=== PATIENT | female | born 1980 | race Caucasian/White ===

== ENCOUNTER 2020-07-04 08:11 | Inpatient (IN) | payer BC ==
[2020-07-04 06:07] LABS: Urine Appearance CLOUDY; Urine Bilirubin NEGATIVE (NEG); Urine Blood NEGATIVE (NEG); Urine Color YELLOW; Urine Glucose NEGATIVE (NEG); Urine Protein NEGATIVE (NEG); Urine Specific Gravity 1.015 (1.005-1.030); Urine Urobilinogen 0.2 mg/dL (0.2-1.0)
[2020-07-04 06:14] LABS: Urine Bacteria NONE SEEN /HPF (<20); Urine RBC <5 /HPF (NONE SEEN)
[2020-07-04 06:20] LABS: Absolute Lymphocytes (CBC) 1.8 K/uL (0.7-4.9); Basophils % 0.6 % (0-1.3); Hematocrit 34.4 % (36.0-45.0); MPV 11.3 fL (7.6-11.3); RBC Red Blood Cell Count 3.94 M/uL (3.86-4.86)
[~2020-07-04 08:11] MED LIST: BUTORPHANOL 1 MG/ML INJ IV PRN; CARBOPROST TROME 250 MCG/ML IM PRN; METHYLERGONOVINE 0.2MG/ML AMP IM PRN; OXYTOCIN/LR 20 UNIT/1,000 ML BAG IV ONE; OXYTOCIN/LR 20 UNIT/1,000 ML BAG IV SCH; PROMETHAZINE INJ 25 MG/ML AMP IM PRN; Ringers Lactate 1,000 ML IV ONE; Ringers Lactate 1,000 ML IV PRN; Ringers Lactate 1,000 ML IV SCH
--- NOTE | 2020-07-04 08:44 | PREOPHP ---
Date of Admission: 07/04/2020 History Of Present Illness: 40-year-old 6, para 4, at 38 weeks 6 days according to ultrasoun d, 39 weeks 2 days, possibly 3 days according to the patient's conception date that she is relatively certain on. The patient has had pruritus of and is on ursodiol, so we are delivering the baby at this point. Family History: Grandmother with cervical cancer. Otherwise, noncontributory. The patient had jaw surgery in 1995, breast augmentation. The patient is on vitamins prior to admission. Allergies: DOES NOT HAVE ANY ALLERGIES. Social History: Does not smoke. Physical Examination: HEENT: Clear. Pupils equal, round, and reactive to light and accommodation. Conjunctivae well perf used. No oral, lingual, or buccal lesions. Chest/Lungs: Clear. Heart: Without murmurs, thrills, heaves, or rubs. Breasts: Without masses on previous visits. Abdomen: Term size. Extremities: Clear. : Cervix is 3 cm, 50% to 60% effaced. Vertex still -1 to -2 station. We will wait for better application of the cervix before we attempt rupture of membranes. She knows if membranes rupture spontaneously, she is to tell the nurse so we can check to make sure there are n o cord problems. Full admission and labor talk given. She is Rh positive, immune to rubella, and nega tive strep screen. NANCY/FROYLAN Voice ID: [id number]
[2020-07-04] MEDS ORDERED: LIDOCAINE 1% MPF 30 ML VIAL ONE (12:19)
--- NOTE | 2020-07-04 13:15 | PN ---
Now baby looks good. She is 3.5, but still with pressure on the head. It is not well applied to the cervix, so we will wait for either spontaneous rupture or wait until she gets a little bit further d own and then rupture membranes. The patient's blood pressures are slightly elevated. We will check the urine but right now I do not think she has preeclampsia. NANCY/FROYLAN Voice ID: [id number] Report ID: [id number]
--- OUTSIDE RECORDS SUMMARY | 2020-07-04 14:16 | XMS REPORT | Clinical Summary ---
:1980 Author Organization [facility] Address [address] [place] [address] Care Team Providers Name Role Phone Aristeo Muniz MD Primary Care Provider Allergies Not on File Medications No known medications Active Problems Problem Noted Date Cervical radiculopathy 07/04/2017 Osteoarthritis of cervical spine 07/04/2017 Social History Tobacco Use Types Packs/Day Years Used Date Never Assessed Sex Assigned at Date Recorded Not on file Last Filed Vital Signs Not on file Plan of Treatment Health Maintenance Due Date Last Done Comments CERVICAL CANCER SCREENING 01/23/2000 INFLUENZA VACCINE 02/26/2020 Results Not on fileafter 07/04/2019 Advance Directives For more information, please contact: [phone] Type Date 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
--- OUTSIDE RECORDS SUMMARY | 2020-07-04 14:16 | XMS REPORT | Continuity of Care Document ---
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 FINDINGS: Compression duplex ultrasound of the left lower extremity was done from the inguinal through the infrageniculate popliteal region. The posterior tibial vein in the calf was also demonstrated. The visualized superficial a nd deep veins are patent and compressible without evidence of intraluminal thrombus. Satisfactory spontaneous and augmented flow is demonstrated in the visualized segments. IMPRESSION: Negative venous Doppler of the left lower extrem ity. [id number] Consultation Notes No Data Provided for This Section Discharge Summaries No Data Provided for This Section History and Physicals No Data Provided for This Section Vital Signs No Data Provided for This Section Encounters Location Location Encounter Encounter Reason Attending ADM DC Stat us Source Details Type Number For Provider Date Date Visit [facility] Out[facility] [id number] Trent Muniz 04/16 04/17 [facility] Procedures No Data Provided for This Section Assessment and Plan No Data Provided for This Section Plan of Care No Data Provided for This Section Social History Social History Date Source Social History TypeResponse 04/17/2017 [facility] Family History No Data Provided for This Section Advance Directives No Data Provided for This Section Functional Status No Data Provided for This Section
--- OUTSIDE RECORDS SUMMARY | 2020-07-04 14:17 | XMS REPORT | Continuity of Care Document ---
:1980 Author Organization [facility] Address [address] [place] [address] Care Team Providers Name Role Phone Aristeo Muniz MD Primary Care Physician Lab, Fam Pob I Attending Clinician Unavailable Flavio Attending Clinician Problems Condition Condition Condition Status Onset Resolution Last Treating Co mments Source Name Details Category Date Date Treatment Clinician Date Lump in Lump in Disease Active right right 01-30 Anderso breast breast 00:00: n 00 Cervical Cervical Disease Active 2016-07 [place] radiculopa radiculopa 09-04 Me thodi thy thy 00:00: st 00 Osteoarthr Osteoarthr Disease Active 2016-07 [place] [facility] [address] [facility] cervical cervical 00:00: st spine spine 00 DX: Diagnosis Active 2017-04-16 Mem oria I82.532=CH 04-16 09:27:00 l RONIC DX: 00:00: [place] EMBOLISM I82.532=CH 00 AND RONIC THROMBO EMBOLISM AND THROMBO Active 04/16/2017 Christian Carrasco Allergies, Adverse Reactions, Alerts This patient has no known allergies or adverse reactions. Family History Family Member Diagnosis Comments Start Date Stop Date Source Maternal grandfather Sarcoma MD Jacquelyn pimentel Maternal grandmother Colon cancer MD Horta Maternal grandmother Leukemia MD Jacquelyn pimentel Maternal grandmother Thyroid cancer MD Horta Natural mother Cervical cancer MD Alecia handy Paternal aunt -Breast cancer MD Trent rubio Family member Ovarian cancer MD Trent rubio Family member Pancreatic cancer MD Jacquelyn pimentel Social History Social Habit Start Date Stop Date Quantity Comments Source Sex Assigned At MD [place] on Cigarettes smoked 2018-01-30 2018-01-30 MD Trent rubio current (pack per 00:00:00 00:00:00 day) - Reported Cigarette pack-years 2018-01-30 2018-01-30 MD Jacquelyn pimentel 00:00:00 00:00:00 Tobacco use and 2018-01-30 2018-01-30 Never used MD Tapia on exposure 00:00:00 00:00:00 Alcohol intake 2018-01-30 2018-01-30 Current drinker MD Alecia handy 00:00:00 00:00:00 of alcohol (finding) History of tobacco 1994-08-02 2017-08-02 Current smoker MD Horta use 00:00:00 00:00:00 Smoking Status Start Date Stop Date Source Former smoker 2018-01-30 00:00:00 2018-01-30 00:00:00 MD Castillo son Medications Ordered Filled Start Stop Current Ordering Indication Dosage Frequency Signature Comments Components Source Medication Medication Date Date Medication? Clinician (SIG) Name Name levothyroxi Yes 62.5ug Take 62.5 ne 7-06 mcg by Stepan (SYNTHROID, 15:41: mouth n LEVOTHROID) 30 daily. 125 mcg tablet magnesium 2017- Yes 2000mg Take 2,000 oxide 7-06 mg by Stepan (MAOX) 400 15:39: mouth n mg tablet 16 daily. norgestimat Yes daily. e-ethinyl 07-28 Stepan estradiol 00:00: n (FEMYNOR) 00 0.25-35 mg-mcg per tablet Procedures This patient has no known procedures. Plan of Care Planned Activity Planned Date Details Comments Source Future Scheduled 2020-02-26 INFLUENZA VACCINE [place] [facility] 00:00:00 [code = INFLUENZA VACCINE] Future Scheduled 2000-01-23 Screening for [facility] 00:00:00 malignant neoplasm of cervix (procedure) [code = 691231520] Encounters Start End Encounter Admission Attending Care Care Encounter Source Date/Time Date/Time Type Type Clinicians Facility Department ID 2020-03-06 2020-03-06 Laboratory Lab, Adc [facility] [id number] 14:45:35 15:05:35 Only [facility] [id number] [place] [id number] [id number] [address] 2017-04-16 2017-04-[address] [facility] [id number] 09:18:00 23:59:00 00 Results This patient has no known results.
[2020-07-04] MEDS ORDERED: DOCUSATE NA/SENNA CONC 1 TAB PO PRN (14:28)
[2020-07-04] MEDS ORDERED: BISACODYL 10 MG RECTAL SUPP PR PRN (14:28)
[2020-07-04] MEDS ORDERED: Oxycodone HCl/Acetaminophen 1 TAB TAB PO PRN ×2 (14:28)
[2020-07-04] MEDS ORDERED: DIPHENHYDRAMINE 25 MG TAB/CAP PO PRN (14:28)
[2020-07-04] MEDS ORDERED: ACETAMINOPHEN 500 MG TAB PO PRN (14:28)
[2020-07-04] MEDS ORDERED: IBUPROFEN 600 MG TAB PO PRN (14:28)
[2020-07-04] MEDS ORDERED: OXYTOCIN/LR 20 UNIT/1,000 ML BAG IV SCH (15:00)
[2020-07-04] MEDS ORDERED: OXYTOCIN/LR 20 UNIT/1,000 ML BAG IV ONE (15:30)
[2020-07-04] MEDS ORDERED: Ringers Lactate 2,000 ML IV ONE (15:31)
--- NOTE | 2020-07-04 16:45 | PN ---
The patient is paris very regularly, firmly now. She is now about 5-1/2 to 6 cm, 90% effaced, -1 station still. Baby looks good on the monitor. The patient is still going completely naturally. We will prepare the room for delivery relatively soon. Blood pressures have been increasing, but I think it is secondary to the discomfort. Nonetheless, if she gets any systolic of 165 or more, we wi ll give her 5 mg of Apresoline or 105 diastolic. I think her blood pressures will probably go back t o normal as soon as she delivers. NANCY/FROYLAN Voice ID: [id number] Report ID: [id number]
--- NOTE | 2020-07-04 16:54 | OP ---
Surgeon: Venancio Tracy MD A 40-year-old, 5, para 4, 39 weeks gestation by conception date even 39 plus 2, by ultrasound 38 plus 6. The patient was diagnosed with cholestasis of , has been on Ursodiol. 3 cm on admission, rupture of membranes, clear fluid. The patient went completely natural during her labor. Lamaze breathing techniques. After reaching 8 cm, went to complete, delivered. Second stage of 10- 15 minutes or less, 7 pounds 3 ounces female, Apgars 9 and 9. Delayed clamping of the cord. Very sm all first-degree laceration to posterior fourchette, infiltrated with local anesthetic, 4 stitches of 2-0 chromic. Schultze delivery of the placenta, which inspected and noted to be intact and normal. Less than 250 cc blood loss. Rh positive, immune to Rubella. Negative beta strep screen. Tolerate d all procedures well. Final Diagnoses: Term intrauterine at 38 weeks 6 days by best estimate, 39 weeks and 2-3 d ays by conception date; cholestasis of ; labor induction; vaginal delivery. NANCY/FROYLAN Voice ID: [id number] Report ID: [id number]
[2020-07-04 21:08] VITALS: BMI 31.4
--- NOTE | 2020-07-05 07:37 | DS ---
Hospital Course: 40-year-old female, 5, para 4, diagnosed with cholestasis of , has been on ursodiol, comes in at approximately 39 weeks for labor induction. Delivered a 7 pounds 3 ou nces female, Apgars 9 and 9. No episiotomy. Very small first-degree laceration at the posterior fou rchettes, 4 stitches of 2-0 chromic after local infiltration. Schultze delivery of the placenta, whi ch inspected and noted to be intact and normal. Less than 250 cc blood loss. Rh positive, immune to Rubella. Negative COVID. Negative strep. ; afebrile, ambulating and voiding. Lochia is normal, will be dismissed. Requests no analgesics. To see me in the office in 6 weeks for followup . To report any temperature elevation of 100 degrees or greater, severe pain, heavy bleeding, or any other type of abnormalities. Flu shot offered. Final Diagnoses: Intrauterine gestation, 39 weeks, cholestasis of , labor induction, vagina l delivery. NANCY/FROYLAN Voice ID: [id number] Report ID: [id number]
--- NOTE | 2020-07-05 09:28 | PN ---
The patient is now 4 cm, 60% effaced, vertex well applied, -1 station. Rupture of membranes, clear f luid. FHTs normal, reactive. She is on 20 milliunits of Pitocin, but really not, extremely uncomfor table. This should stimulate labor and I anticipate more rapid progress. The patient has gone natur al with her other childbirths and anticipates doing the same thing. She is in very good control. Sh missy knows that she starts feeling pressure or feeling like she has to have a bowel movement to tell the nurses and we will check her immediately. NANCY/FROYLAN Voice ID: [id number] Report ID: [id number]
[2020-07-05 17:48] VITALS: BP 140/75; TEMP 98.3
[2020-07-06 02:50] LABS: RPR (Rapid Plasma Reagin) NON-REACT (NON-REACT)
[2020-07-07 19:47] LABS: HBsAG Nonreactive (Nonreactive)
== END 2020-07-05 15:45 | disposition home or self-care (01) | DRG 805 ==
LOC: 2ND-WC 08:11
PROVIDERS: ADMIT Specialist; ATTEND Specialist
PROC: 10E0XZZ Delivery of Products of Conception, External Approach (ICD-10-PCS; principal; 2020-07-04)
PROC: 0HQ9XZZ Repair Perineum Skin, External Approach (ICD-10-PCS; 2020-07-04)
PROC: 10907ZC Drainage of Amniotic Fluid, Therapeutic from Products of Conception, Via Natural or Artificial Opening (ICD-10-PCS; 2020-07-04)
PROC: 3E033VJ Introduction of Other Hormone into Peripheral Vein, Percutaneous Approach (ICD-10-PCS; 2020-07-04)
DX: O26.62 Liver and biliary tract disorders in childbirth (principal); K83.1 Obstruction of bile duct; Z37.0 Single live birth; O70.0 First degree perineal laceration during delivery; Z3A.39 39 weeks gestation of pregnancy; Z20.828 Contact with and (suspected) exposure to other viral communicable diseases
CPT/HCPCS: 36415; 81001; 85025; 86592; 86900; 86901; 87340; 96372; J2210; J2590; J7120; U0003